=== PATIENT | male | born 1990 | race Caucasian/White ===

== ENCOUNTER 2020-09-13 14:42 | Emergency (ER) | payer BC ==
[~2020-09-13] VITALS: Ht 175.3 cm; Wt 94.0 kg
[2020-09-13] MEDS ORDERED: METH4PACK (14:50)
[2020-09-13] MEDS ORDERED: NORCO, ANEXSIA 5/325MG TABLET (HYDROcodone/ACETAMINOPHEN) PO ONE (17:20)
[2020-09-13] MEDS ORDERED: DOXYCYCLINE HYCLATE 100MG TABLET PO ONE (17:20)
--- NOTE | 2020-09-13 19:09 | REPVR ---
PROCEDURE INFORMATION: Exam: CT Left Lower Extremity Without Contrast, Ankle Exam date and time: 09/13/2020 5:50 PM Age: 30 years old Clinical indication: Pain; Ankle; Left; Additional info: Injury 2 days ago, XR neg, increased swelling, pain TECHNIQUE: Imaging protocol: CT of the Left lower extremity without contrast was performed. Exam focused on the ankle. Radiation optimization: All CT scans at this facility use at least one of these dose optimization techniques: automated exposure control; mA and/or kV adjustment per patient size (includes targeted exams where dose is matched to clinical indication); or iterative reconstruction. COMPARISON: No relevant prior studies available. FINDINGS: Bones/joints: There is a 2 mm calcific density adjacent to the inferolateral aspect of the left medial malleolus in the region of the left anterior tibiotalar ligament component of the deltoid ligamentous complex (image 37 of the coronal series 203), which may an avulsion injury or chondrocalcinosis. No fracture line or dislocation is noted. The joint spaces and alignment are maintained. There is no tarsal coalition. No os trigonum is present. Incidental note is made of a well corticated accessory ossicle lateral to the cuboid, which represents an os peroneum. Soft tissues: There is soft tissue swelling and edema predominantly along the medial aspect of the left ankle. No soft tissue fluid collection is noted. IMPRESSION: 1. 2 mm calcific density adjacent to the inferolateral aspect of the left medial malleolus in the region of the left anterior tibiotalar ligament component of the deltoid ligamentous complex, which may an avulsion injury or chondrocalcinosis. 2. Soft tissue swelling predominantly along the medial aspect of the left ankle. Electronically signed by: Liam Paula On 09/13/2020 19:09:49 PM
[2020-09-13 19:49] VITALS: BP 126/77
[2020-09-13] MEDS ORDERED: HYDR-3713 PO (19:51)
[2020-09-13] MEDS ORDERED: IBUP-1022 PO (19:51)
[2020-09-13] MEDS ORDERED: NORCO 5/325MG TABLET (BULK FOR ED) PO ONE (19:55)
[2020-09-13] MEDS ORDERED: DOXY100C37 PO (19:55)
== END 2020-09-13 20:03 | disposition home or self-care (01) ==
LOC: M ED 14:42
DX: S82.55XA Nondisplaced fracture of medial malleolus of left tibia, initial encounter for closed fracture (principal); L03.116 Cellulitis of left lower limb; V28.2XXA Unspecified motorcycle rider injured in noncollision transport accident in nontraffic accident, initial encounter; Y92.009 Unspecified place in unspecified non-institutional (private) residence as the place of occurrence of the external cause; Y93.9 Activity, unspecified; Y99.9 Unspecified external cause status; F17.200 Nicotine dependence, unspecified, uncomplicated; Z88.0 Allergy status to penicillin

== ENCOUNTER 2024-06-17 07:40 | Emergency (ER) | payer BC ==
[~2024-06-17] VITALS: Ht 175.3 cm; Wt 92.5 kg
[~2024-06-17 07:40] MED LIST: DOXY-441 PO; HYDR-3713 PO; IBUP-1022 PO; METH4PACK
[2024-06-17] MEDS: LIDOCAINE 5% (LIDODERM) PATCH TD ONE (09:52)
[2024-06-17] MEDS: ACETAMINOPHEN 500 MG TAB PO ONE (09:53)
[2024-06-17] MEDS: KETOROLAC 60MG 2ML VIAL IM ONE (09:53)
[2024-06-17] MEDS: diazePAM 5MG TABLET PO ONE (09:53)
[2024-06-17] MEDS ORDERED: MEDR4TAB PO (12:40)
[2024-06-17] MEDS ORDERED: VALI5TAB PO (12:40)
[2024-06-17] MEDS ORDERED: LIDO5DIS41 TOP (12:40)
[2024-06-17] MEDS ORDERED: ACET-907 PO (12:40)
[2024-06-17] MEDS ORDERED: IBUP-1022 PO (12:40)
[2024-06-17] MEDS ORDERED: TIZA10TA PO (12:43)
[2024-06-17 12:57] VITALS: BP 130/80; TEMP 98.2; O2SAT 100
== END 2024-06-17 12:59 | disposition home or self-care (01) ==
LOC: M ED 07:40
DX: M51.27 Other intervertebral disc displacement, lumbosacral region (principal); M54.17 Radiculopathy, lumbosacral region; X50.0XXA Overexertion from strenuous movement or load, initial encounter; Q07.00 Arnold-Chiari syndrome without spina bifida or hydrocephalus; Z88.0 Allergy status to penicillin; Z91.030 Bee allergy status
CPT/HCPCS: 72148; 96372; 99283; J1885

== ENCOUNTER 2024-06-21 09:38 | Emergency (ER) | payer BC ==
[~2024-06-21] VITALS: Ht 175.3 cm; Wt 90.9 kg
[~2024-06-21 09:38] MED LIST changes: +ACET-907 PO; +LIDO5DIS41 TOP; +MEDR4TAB PO; +TIZA10TA PO; +VALI5TAB PO
[2024-06-21] MEDS: MORPHINE 4 MG/ML 1ML VIAL IV ONE (11:07)
[2024-06-21] MEDS: ONDANSETRON 4MG 2ML VIAL IV ONE (11:11)
[2024-06-21] MEDS: HYDROMORPHONE HCL 0.5 MG/ 0.5 ML SYRINGE IV ONE (14:02)
[2024-06-21 14:31] VITALS: BP 126/72; TEMP 98; O2SAT 98
== END 2024-06-21 14:33 | disposition short-term general hospital (02) ==
LOC: EDBD 09:38 → M ED 09:38
DX: M54.50 Low back pain, unspecified (principal); Z79.899 Other long term (current) drug therapy; Z88.0 Allergy status to penicillin; Z91.030 Bee allergy status
CPT/HCPCS: 96374; 96375; 99285; J1171; J2405